=== PATIENT | female | born 1980 | race Caucasian/White ===

== ENCOUNTER 2021-08-19 03:01 | Emergency (ER) | payer MEDICAID ==
[~2021-08-19] VITALS: Ht 144.8 cm; Wt 74.4 kg
[2021-08-19 03:24] VITALS: BP 137/92
--- NOTE | 2021-08-19 03:28 | NUR ---
TO LOBBY TO A/W EVALUATION
--- NOTE | 2021-08-19 03:30 | NUR ---
SEE COMPLETE ASSESMENT
[2021-08-19] MEDS ORDERED: ACETAMINOPHEN 325 MG TAB PO ONE (04:10)
[2021-08-19] MEDS ORDERED: ALUMINUM HYD/MAG/SIMETHICONE 30 ML UDC PO ONE (04:10)
[2021-08-19] MEDS ORDERED: FAMOTIDINE 20 MG TAB PO ONE (04:10)
--- NOTE | 2021-08-19 04:22 | NUR ---
PT TAKEN TO RAD VIA W/C
--- NOTE | 2021-08-19 04:30 | NUR ---
PT MEDICATED PER ERMD ORDERS AND SENT TO LOBBY.
[2021-08-19] MEDS ORDERED: ALUM355S59 PO (06:40)
[2021-08-19] MEDS ORDERED: FAMO-90 PO (06:40)
[2021-08-19 07:04] LABS: BASOPHILS % (AUTO) 0.7 % (0.0-2.0); EOSINOPHILS # (AUTO) 0.1 K/uL (0-0.4); EOSINOPHILS % (AUTO) 0.9 % (0.0-4.0); HEMATOCRIT 42.5 % (36-48); HEMOGLOBIN 14.4 g/dL (12.0-16.0); LYMPHOCYTES # (AUTO) 2.5 K/uL (2.5-16.5); LYMPHOCYTES % (AUTO) 34.2 % (20.5-51.1); MEAN CORPUSCULAR HEMOGLOBIN 28 pg (27-31); MEAN CORPUSCULAR HGB CONC 34 g/dL (33-37); MEAN CORPUSCULAR VOLUME 83.2 fL (80-94); MONOCYTES # (AUTO) 0.4 K/uL (0.8-1.0); MONOCYTES % (AUTO) 5.5 % (1.7-9.3); NEUTROPHILS # (AUTO) 4.2 K/uL (1.8-7.7); NEUTROPHILS % (AUTO) 58.7 % (42.2-75.2); RED BLOOD CELL COUNT(AUTO) 5.11 MIL/uL (4.20-5.40); RED CELL DISTRIBUTION WIDTH 14.7 % (11.6-13.7); WHITE BLOOD COUNT (AUTO) 7.2 K/uL (4.8-10.8)
[2021-08-19 07:30] LABS: ALBUMIN 3.6 g/dL (3.4-5.0); ANION GAP 14.4 (8-16); CARBON DIOXIDE 27.5 mmol/L (21-32); CREATININE 0.6 mg/dL (0.6-1.3); POTASSIUM 3.9 mmol/L (3.5-5.1); TOTAL BILIRUBIN 0.2 mg/dL (0.0-1.0)
[2021-08-19 07:33] LABS: PLATELET COUNT (AUTO) 235 K/uL (140-450)
[2021-08-19 09:00] VITALS: BP 144/93
--- NOTE | 2021-08-19 09:00 | NUR ---
Patient discharged with v/s stable. Written and verbal after care instructions ABOUT NONSPECIFIC CHEST PAIN AND GASTRITIS given and explained. Patient alert, oriented and verbalized understanding of instructions. Ambulatory with steady gait. All questions addressed prior to discharge. ID band removed. Patient advised to follow up with PMD. Rx of MAALOX ADVANCED SUSPENSION AND PEPCID given. Patient educated on indication of medication including possible reaction and side effects. Opportunity to ask questions provided and answered.
== END 2021-08-19 09:00 | disposition home or self-care (01) ==
LOC: MED 03:01 → EDBD 03:01 → MED 09:00
DX: R07.9 Chest pain, unspecified (principal)
CPT/HCPCS: 36415; 71045; 80053; 81002; 81025; 83690; 84484; 85025; 93005; 99285; Q0092

== ENCOUNTER 2022-02-06 22:46 | Emergency (ER) | payer MEDICAID ==
[~2022-02-06] VITALS: Ht 144.8 cm; Wt 73.7 kg
[~2022-02-06 22:46] MED LIST: ALUM355S59 PO; FAMO-90 PO
[2022-02-06 23:00] VITALS: BP 160/94
--- NOTE | 2022-02-06 23:03 | NUR ---
to lobby a/w bed ambulatory
[2022-02-07 00:22] LABS: BASOPHILS % (AUTO) 0.4 % (0.0-2.0); EOSINOPHILS # (AUTO) 0.1 K/uL (0-0.4); EOSINOPHILS % (AUTO) 0.5 % (0.0-4.0); HEMATOCRIT 37.1 % (36-48); HEMOGLOBIN 12.2 g/dL (12.0-16.0); LYMPHOCYTES # (AUTO) 2.9 K/uL (2.5-16.5); LYMPHOCYTES % (AUTO) 30.1 % (20.5-51.1); MEAN CORPUSCULAR HEMOGLOBIN 27 pg (27-31); MEAN CORPUSCULAR HGB CONC 33 g/dL (33-37); MONOCYTES # (AUTO) 0.8 K/uL (0.8-1.0); MONOCYTES % (AUTO) 8.4 % (1.7-9.3); NEUTROPHILS # (AUTO) 5.9 K/uL (1.8-7.7); NEUTROPHILS % (AUTO) 60.6 % (42.2-75.2); PLATELET COUNT (AUTO) 268 K/uL (140-450); RED BLOOD CELL COUNT(AUTO) 4.47 MIL/uL (4.20-5.40); RED CELL DISTRIBUTION WIDTH 14.9 % (11.6-13.7); WHITE BLOOD COUNT (AUTO) 9.7 K/uL (4.8-10.8)
[2022-02-07 00:24] LABS: APPEARANCE,URINE CLEAR (CLEAR); BILIRUBIN,URINE NEGATIVE (NEGATIVE); BLOOD, URINE 1+ (NEGATIVE); COLOR,URINE YELLOW (YELLOW); LEUKOCYTE ESTERASE ,URINE NEGATIVE (NEGATIVE); NITRITE, URINE NEGATIVE (NEGATIVE); UGLUCOSE NEGATIVE (NEGATIVE)
[2022-02-07 00:43] LABS: ALBUMIN 3.7 g/dL (3.4-5.0); ANION GAP 10.9 (8-16); CARBON DIOXIDE 27.9 mmol/L (21-32); CREATININE 0.7 mg/dL (0.6-1.3); POTASSIUM 3.8 mmol/L (3.5-5.1); TOTAL BILIRUBIN 0.3 mg/dL (0.0-1.0)
[2022-02-07 00:51] LABS: RBC,URINE 0-5 /HPF (0-5); WBC,URINE 0-5 /HPF (0-5)
[2022-02-07] MEDS: NACL 0.9% 1,000 ML IV SCH (00:59)
[2022-02-07] MEDS: PANTOPRAZOLE 40 MG INJ VIAL IVP ONE (01:03)
[2022-02-07] MEDS: ONDANSETRON 4 MG/2 ML VIAL IVP ONE (01:04)
[2022-02-07] MEDS: KETOROLAC 30 MG/ML VIAL IVP ONE (01:05)
--- NOTE | 2022-02-07 01:11 | NUR ---
PT TAKEN TO US
[2022-02-07] MEDS ORDERED: CEPH500T PO (01:44)
[2022-02-07] MEDS ORDERED: IBUP-2218 PO (01:45)
[2022-02-07 03:35] VITALS: BP 156/86
[2022-02-07] MEDS ORDERED: cephALEXin 500 MG CAP PO ONE (03:35)
--- NOTE | 2022-02-07 03:35 | NUR ---
Patient discharged with v/s stable. Written and verbal after care instructions given ON PYELONEPHRITIS AND DYSURIA and explained. Patient alert, oriented and verbalized understanding of instructions. Ambulatory with steady gait. All questions addressed prior to discharge. ID band removed. Patient advised to follow up with PMD. Rx of CEPHALEXIN, IBUPROFEN given.
== END 2022-02-07 03:35 | disposition home or self-care (01) ==
LOC: MED 22:46
DX: N39.0 Urinary tract infection, site not specified (principal); N21.0 Calculus in bladder; Z79.1 Long term (current) use of non-steroidal anti-inflammatories (NSAID); Z79.2 Long term (current) use of antibiotics; Z79.899 Other long term (current) drug therapy
CPT/HCPCS: 36415; 76705; 80053; 81001; 81025; 83690; 84703; 85025; 87086; 96361; 96374; 96375; 99284; C9113; J1885; J2405; J7030; Q0092